=== PATIENT | female | born 1940 | race African-American/Black ===

== ENCOUNTER 2016-12-15 12:39 | Emergency (ER) | payer MEDICARE, OTHER ==
[~2016-12-15] VITALS: Ht 162.6 cm; Wt 49.9 kg
[2016-12-15] MEDS ORDERED: TRUFORM COMPRE1 EACH MC (13:05)
[2016-12-15] MEDS ORDERED: HYDROCHLOROTH12.5 M2 ORAL (13:05)
[2016-12-15] MEDS ORDERED: TYLENOL EXTRA500 MG ORAL (13:05)
[2016-12-15 13:12] VITALS: BP 165/59
--- NOTE | 2016-12-15 15:23 | Emergency Room Report ---
History of Present Illness General Chief Complaint: Pain Source: Patient (KIM MONGE) Present Illness HPI The patient is a 76-year-old female with a history of RA and varicose veins presenting with bilateral lower leg and foot pain which has been present for the past 6 months. She has been seen in this emergency department for the same complaint and was diagnosed with varicose veins. Pain is described as an 8/10 dull ache worse with walking and better with rest and elevation. She states all joints fill painful and stiff in the morning. She has not tried any pain medications. She has not tried any compression stockings. She denies other symptoms such as N, V, F, chills, rash, calf pain, SOB, CP, (KIM MONGE) Allergies: Coded Allergies: AMPICILLIN (Verified Allergy, Mild, 11/23/14) CODEINE (Verified Allergy, Mild, 11/23/14) SULFA (SULFONAMIDE ANTIBIOTICS) (Verified Allergy, Unknown, 12/15/16) Patient History Past Medical History: see triage record Pertinent Family History: none Social History: Reports: smoking Last Menstrual Period: N/A Reviewed Nursing Documentation: PMH: Agreed, PSxH: Agreed (KIM MONGE) Nursing Documentation-PMH Past Medical History: No Stated History (KIM MONGE) Review of Systems All Other Systems: negative except mentioned in HPI (KIM MONGE) Physical Exam Vital Signs Date Time Temp Pulse Resp B/P (MAP) Pulse Ox O2 Delivery O2 Flow Rate FiO2 12/15/16 12:47 98.2 66 18 160/60 97 Room Air Sp02 EP Interpretation: reviewed, normal General Appearance: no apparent distress, alert, GCS 15, non-toxic Head: normocephalic, atraumatic Eyes: bilateral eye normal inspection, bilateral eye PERRL ENT: hearing grossly normal, normal pharynx, no angioedema, normal voice Neck: full range of motion, supple/symm/no masses Respiratory: chest non-tender, lungs clear, normal breath sounds, speaking full sentences Cardiovascular #1: regular rate, rhythm, no edema Musculoskeletal: normal range of motion, no calf tenderness, swelling - IP joints Neurologic: alert, oriented x3, responsive, motor strength/tone normal, sensory intact, speech normal Psychiatric: judgement/insight normal, memory normal, mood/affect normal, no suicidal/homicidal ideation Skin: other - bilat lower leg varicosities. No edema Lymphatic: no adenopathy (KIM MONGE P.Slick) Medical Decision Making PA Attestation Dr. Gaitan is my supervising physician. Patient management was discussed with my supervising physician (KIM MONGE) Medicare Attestation Fredo Mcgregor MD hereby attest that this medical record entry accurately reflects signatures/notations that I made in my capacity as MD when I treated/ diagnosed the above listed Medicare beneficiary. I attest that this information is true, accurate and complete to the best of my knowledge. I understand that any falsification, omission, or concealment of material fact may subject me to administrative, civil, or criminal liability. This patient warrants hospital admission for extreme of age and has a condition that cannot be treated as outpatient. (Fredo Gaitan M.D.) Diagnostic Impression: Primary Impression: Hypertension Qualified Codes: I10 - Essential (primary) hypertension Additional Impressions: Arthritis Varicose veins of both lower extremities ER Course The patient is a 76-year-old female with a history of rheumatoid arthritis and varicose veins presenting for lower leg pain Differential diagnoses considered but not limited to: Varicose veins, CHF, DVT, sprain, contusion, arthritis, among others Physical exam: Patient is hypertensive at 160/60. Otherwise unremarkable Bilateral lower legs have varicose veins. No lower leg edema. No calf tenderness. Normal gait. There is interphalangeal joint inflammation of the hands and feet. Otherwise exam is unremarkable The patient is discharged with a prescription for pain medication, compression stockings, and low-dose of hydrochlorothiazide. She will follow up with primary doctor as soon as possible. ER precautions are given (KIM MONGE P.A.) Last Vital Signs Date Time Temp Pulse Resp B/P (MAP) Pulse Ox O2 Delivery O2 Flow Rate FiO2 12/15/16 13:12 98.4 83 16 165/59 98 Room Air Status: improved (KIM MONGE P.A.) Disposition: HOME, SELF-CARE Condition: Improved Scripts Comp.stocking,Knee,Regular,Lrg (TRUFORM COMPRESSION STOCKING) 1 Each Each EACH MC, #2 Prov: KIM MONGE.A. 12/15/16 Hydrochlorothiazide* (HYDROCHLOROTHIAZIDE*) 12.5 Mg Capsule 12.5 MG ORAL DAILY, #30 CAP Prov: KIM MONGE P.A. 12/15/16 Acetaminophen* (TYLENOL EXTRA STRENGTH*) 500 Mg Tablet 500 MG ORAL Q8H Y for Prn Headache/Temp > 101, #30 TAB 0 Refills Prov: KIM MONGE.A. 12/15/16 Referrals: NON PHYSICIAN (PCP) Patient Instructions: Arthritis, Hypertension Additional Instructions: I discussed my findings with the patient. All questions and concerns have been answered. Treatment and medication compliance have been addressed. I advised the patient that they need to follow up with PMD in 3-5 days. Return to ED if symptoms worsen, new symptoms arise, or if needed for any reason. Patient verbalized understanding of discharge instructions. KIM MONGE Dec 15, 2016 15:23 Fredo Gaitan M.D. Dec 15, 2016 19:06
== END 2016-12-15 13:12 | disposition home or self-care (01) ==
LOC: EMR 13:06
DX: I83.813 Varicose veins of bilateral lower extremities with pain (principal); I10 Essential (primary) hypertension; Z88.2 Allergy status to sulfonamides; Z88.6 Allergy status to analgesic agent
CPT/HCPCS: 99284